=== PATIENT | female | born 1975 | race Two or more races ===

== ENCOUNTER → 2020-05-01 | Outpatient (CLI) | payer OTHER | END | disposition home or self-care (01) | LOC: CVU 12:34 | PROVIDERS: ATTEND Internal Medicine Cardiovascular Disease | DX: I25.89 Other forms of chronic ischemic heart disease (principal); R94.31 Abnormal electrocardiogram [ECG] [EKG]; R06.02 Shortness of breath; Z82.49 Family history of ischemic heart disease and other diseases of the circulatory system | CPT/HCPCS: 78452; 93017; 93306; A9502 ==

== ENCOUNTER → 2020-06-04 | Outpatient (CLI) | payer OTHER | END | disposition home or self-care (01) | LOC: RAD 12:59 | PROVIDERS: ATTEND Internal Medicine Cardiovascular Disease | DX: Z13.6 Encounter for screening for cardiovascular disorders (principal); E78.5 Hyperlipidemia, unspecified | CPT/HCPCS: 75571 ==